=== PATIENT | female | born 1980 | race Caucasian/White ===

== ENCOUNTER 2017-03-03 15:26 | Inpatient (IN) | payer MEDICAID, OTHER ==
[2017-03-03] MEDS ORDERED: SOLU-Medrol 40 MG VIAL IVP ONE (17:44)
[2017-03-03 17:58] VITALS: BMI 42.8
[2017-03-03] MEDS: NS 1000 ML 1,000 ML IV SCH (18:03)
[2017-03-03 18:24] LABS: BASOPHILS # (AUTO) 0.1 X10^3/uL (0.0-0.1); BASOPHILS % (AUTO) 0.9 % (0.2-1.0); EOSINOPHILS # (AUTO) 0.1 x10^3/uL (0.0-0.2); EOSINOPHILS % (AUTO) 1.5 % (0.9-2.9); HEMATOCRIT 34.8 % (36.0-47.0); HEMOGLOBIN 11.7 g/dL (12.0-16.0); LYMPHOCYTES # (AUTO) 2.7 X10^3/uL (1.3-2.9); LYMPHOCYTES % (AUTO) 34.1 % (21.0-51.0); MEAN CORPUSCULAR HEMOGLOBIN 26.6 pg (27.0-34.0); MEAN CORPUSCULAR HGB CONC 33.6 g/dL (33.0-35.0); MEAN CORPUSCULAR VOLUME 79.2 fL (80.0-100.0); MEAN PLATELET VOLUME 8.2 fL (7.4-11.0); MONOCYTES # (AUTO) 0.4 x10^3/uL (0.3-0.8); MONOCYTES % (AUTO) 4.6 % (0.0-13.0); NEUTROPHILS # (AUTO) 4.7 x10^3/uL (2.2-4.8); NEUTROPHILS % (AUTO) 58.9 % (42.0-75.0); PLATELET COUNT 282 X10^3/uL (150.0-450.0); RED BLOOD COUNT 4.39 X10^6/uL (3.5-5.4); RED CELL DISTRIBUTION WIDTH 13.8 % (11.6-16.5)
[2017-03-03 18:38] LABS: ALANINE AMINOTRANSFERASE 41 Units/L (12-78); ALBUMIN 3.7 g/dL (3.4-5.0); ALKALINE PHOSPHATASE 82 Units/L (46-116); AMYLASE 33 Units/L (25-115); ASPARTATE AMINO TRANSFERASE 27 Units/L (15-37); BLOOD UREA NITROGEN 13 mg/dL (7-18); CALCIUM 8.7 mg/dL (8.5-10.1); CARBON DIOXIDE 27.4 mmol/L (21-32); CHLORIDE 107 mmol/L (98-107); GLUCOSE 91 mg/dL (65-99); LIPASE 117 Units/L (73-393); SODIUM 143 mmol/L (136-145); TOTAL PROTEIN 7.2 g/dL (6.4-8.2); eGFR BLACK RACES > 60 (>60); eGFR NON BLACK RACES 59 (>60)
[2017-03-03] MEDS: BENADRYL INJ 50 MG VIAL IVP SCH ×2 (18:42→23:13)
[2017-03-03 18:56] LABS: D DIMER 102 ng/mL (0-400)
[2017-03-03 19:07] LABS: ERYTHROCYTE SEDIMENTATION RATE 16 MM/HOUR (0-20)
--- NOTE | 2017-03-03 19:09 | RAD ---
HISTORY: Shortness of breath. Facial cellulitis. Study: Chest two views Comparison: None. Findings: The trachea is midline. The cardiac silhouette is unremarkable. The lungs are clear without focal infiltrate or effusion. The bony thorax is unremarkable. IMPRESSION: 1. No acute cardiopulmonary disease. Reported By:
[2017-03-03] MEDS: TEFLARO 600 MG in NS 50 ML IV + SPIKE MINIBAG* 50 ML IV SCH (20:03)
[2017-03-03 21:13] LABS: BILIRUBIN,URINE NEGATIVE (NEGATIVE); BLOOD/HEMOGLOBIN,URINE NEGATIVE (NEGATIVE); GLUCOSE, URINE NEGATIVE (NEGATIVE); KETONES,URINE NEGATIVE (NEGATIVE); LEUKOCYTE ESTERASE ,URINE NEGATIVE (NEGATIVE); NITRITES,URINE NEGATIVE (NEGATIVE); PROTEIN,URINE NEGATIVE (NEGATIVE); UROBILINOGEN,URINE NORMAL (NORMAL)
[2017-03-03 21:15] LABS: APPEARANCE,URINE CLEAR (CLEAR); COLOR,URINE YELLOW (YELLOW)
[2017-03-03 21:17] LABS: BACTERIA,URINE TRACE /HPF (NEGATIVE); MUCUS,URINE MODERATE /HPF (NEGATIVE); RBC,URINE NONE SEEN /HPF (NEGATIVE); SQUAMOUS EPITHELIAL CELL,UR FEW /HPF (NEGATIVE)
[2017-03-03] MEDS: ZOFRAN INJ 4 MG VIAL IVP PRN (23:13)
[2017-03-04 04:57] LABS: BLOOD UREA NITROGEN 11 mg/dL (7-18); CALCIUM 8.7 mg/dL (8.5-10.1); CARBON DIOXIDE 26.1 mmol/L (21-32); CHLORIDE 108 mmol/L (98-107); COR NA(FOR HYPERGLY) 144 mmol/L (136-145); CREATININE 0.73 mg/dL (0.55-1.02); GLUCOSE 167 mg/dL (65-99); SODIUM 142 mmol/L (136-145); eGFR BLACK RACES > 60 (>60); eGFR NON BLACK RACES > 60 (>60)
[2017-03-04 05:00] LABS: BASOPHILS % (AUTO) 0.2 % (0.2-1.0); HEMATOCRIT 36.7 % (36.0-47.0); HEMOGLOBIN 12.1 g/dL (12.0-16.0); LYMPHOCYTES # (AUTO) 0.8 X10^3/uL (1.3-2.9); LYMPHOCYTES % (AUTO) 11.2 % (21.0-51.0); MEAN CORPUSCULAR HEMOGLOBIN 26.3 pg (27.0-34.0); MEAN CORPUSCULAR HGB CONC 32.9 g/dL (33.0-35.0); MEAN CORPUSCULAR VOLUME 80.2 fL (80.0-100.0); MEAN PLATELET VOLUME 8.6 fL (7.4-11.0); MONOCYTES # (AUTO) 0.1 x10^3/uL (0.3-0.8); MONOCYTES % (AUTO) 0.8 % (0.0-13.0); NEUTROPHILS # (AUTO) 6.2 x10^3/uL (2.2-4.8); NEUTROPHILS % (AUTO) 87.8 % (42.0-75.0); PLATELET COUNT 275 X10^3/uL (150.0-450.0); RED BLOOD COUNT 4.58 X10^6/uL (3.5-5.4); RED CELL DISTRIBUTION WIDTH 13.9 % (11.6-16.5); WHITE BLOOD COUNT 7.1 X10^3/uL (3.6-10.0)
[2017-03-04] MEDS: BENADRYL INJ 50 MG VIAL IVP SCH ×2 (05:39→11:20)
[2017-03-04] MEDS: TEFLARO 600 MG in NS 50 ML IV + SPIKE MINIBAG* 50 ML IV SCH ×2 (08:39→22:02)
[2017-03-04] MEDS: NORCO 10/325 TAB PO PRN ×2 (08:40→22:04)
[2017-03-04] MEDS ORDERED: TUSSIONEX PENNKINETIC SUSP PO PRN (13:06)
--- NOTE | 2017-03-04 13:13 | DR.H&P ---
H&P - History & Physical for Day of: H&P Date: 03/03/17 - Chief Complaint Chief Complaint: FACIAL SWELLING, COUGH - Allergies Allergies/Adverse Reactions: Allergies Allergy/AdvReac Type Severity Reaction Status Date / Time Lisinopril Allergy Verified 03/03/17 17:00 - History of Present Illness History of Present Illness: PATIENT IS A 36-YEAR-OLD WHITE FEMALE WHO WAS ADMITTED FROM [facility] ONE DAY AGO WITH FACIAL CELLULITIS/ ANGIOEDEMA, AND COUGH. pATIENT HAD BEEN TREATED PREVIOUS TO ADMISSION WITH ORAL ANTIBIOTICS. pATIENT HAS BEEN ON LISINOPRIL FOR ANTIHYPERTENSIVE TREATMENT. lISINOPRIL WAS DISCHARGED DUE TO POSSIBLE CAUSE OF COUGH AND ANGIOEDEMA. pLAN TO TREAT WITH iv ANTIBIOTICS AND STEROIDS AND ANTIHISTAMINES FOR TREATMENT. - Past Medical History Past Medical History: Hypertension - Past Surgical History Surgical History: , Hysterectomy, Other - Social History Does patient currently use any type of tobacco product: No Have you used tobacco products in the last 12 months: No Type of Tobacco Use: None Does any household member use tobacco: No Alcohol Use: None Drug Use: None - Medications Home Medications: Amlodipine Besylate [NORVASC 5 MG *] 1 tab PO DAILY 03/04/17 [History Confirmed 03/04/17] Hydrochlorothiazide [Hydrochlorothiazide 25 mg Tab] 1 tab PO DAILY 03/04/17 [ History Confirmed 03/04/17] Hydrocodone-Acet 10/325 mg [NORCO 10 MG/325 MG *] 1 tab PO TID PRN 03/04/17 [ History Confirmed 03/04/17] Lisinopril [ZESTRIL *] 1 tab PO DAILY 03/04/17 [History Confirmed 03/04/17] Phentermine HCl [Adipex-P] 1 tab PO DAILY 03/04/17 [History Confirmed 03/04/17] Prednisone [Prednisone DS Dosepak 10 mg (12 day)] 1 tab PO DAILY 03/04/17 [ History Confirmed 03/04/17] Ranitidine HCl [Ranitidine [address]] 1 tab PO BID 03/04/17 [History Confirmed 03/04/17] Sulfamethoxazole-Trimethoprim [BACTRIM DS TAB 800/160 MG *] 1 tab PO BID [History Confirmed 03/04/17] - Review of Systems Constitutional: No Symptoms Reported Eyes: No Symptoms Reported, Conjunctivae Inflammation ENT: Nose Congestion, Throat Pain Respiratory: Cough Cardiovascular: No Symptoms Reported Gastrointestinal: No Symptoms Reported Genitourinary: No Symptoms Reported Musculoskeletal: No Symptoms Reported Skin: Other (MILD REDNESS TO LEFT CHEEK LEFT PERIORBITAL AREA) Neurological: No Symptoms Reported - Physical Exam Vital Signs: Temperature 98.0 F Pulse Rate [Left Brachial] 67 Respiratory Rate 20 Blood Pressure [Left Arm] 113/56 O2 Sat by Pulse Oximetry 96 Oriented: Normal Eyes: Normal Ear: Normal Nose: Normal Throat: Normal Respiratory: RLL Exp. Wheeze, LLL Exp. Wheeze Cardiovascular: Normal : Normal Auscultation: Bowel Sounds: Normal Palpation: Normal Tenderness: Normal Skin: Red (MILD REDNESS LOCALIZED TO LEFT CHEEK) Musculoskeletal: Normal Psychiatric: Anxiety Speech Pattern: Clear, Appropriate - Assessment/Plan (1) Cough due to TORITO inhibitor Status: Acute Plan: ADMIT IV ATBX, IV STEROIDS, ANTIHISTAMINES (2) Facial cellulitis Status: Acute (3) HTN (hypertension) Qualifiers: Hypertension type: H Status: Chronic
--- NOTE | 2017-03-04 13:16 | PCM.PROG ---
Progress Note - Progress Note for Day of Date: 03/04/17 - Subjective Subjective: she is a 36-year-old white female who was admitted one day ago with possible allergic reaction/angioedema from TORITO inhibitor. Patient has been on IV antibiotics for facial cellulitis which is significantly improved. Patient continues to cough today. Plan to consult respiratory therapy start Protonix 40 IV, reassess q am - Past Medical Family Social History Past Med/Fam/Surg Hx: No changes since H&P Allergies: Allergies Lisinopril Allergy (Verified 03/03/17 17:00) - Review of Systems ROS: No change since H&P - Vital Signs and I&O's Vital Signs: Temperature 98.0 F Pulse Rate [Left Brachial] 67 Respiratory Rate 20 Blood Pressure [Left Arm] 113/56 O2 Sat by Pulse Oximetry 96 Intake and Output: Intake & Output 03/02/17 03/03/17 03/04/17 03/05/17 11:59 11:59 11:59 11:59 Intake Total 687 Output Total 100 Balance 587 - Physical Exam Oriented: Normal Eyes: Normal Ear: Normal Nose: Normal Throat: Normal Respiratory: Normal Cardiovascular: Normal : Normal Auscultation: Bowel Sounds: Normal Tenderness: Normal Skin: Normal Musculoskeletal: Normal Psychiatric: Anxiety Speech Pattern: Clear, Appropriate - Laboratory and Diagnostics Result Diagrams: 03/04/17 04:05 03/04/17 04:05 Labs: Laboratory WBC 7.1 X10^3/uL (3.6-10.0) 03/04/17 04:05 RBC 4.58 X10^6/uL (3.5-5.4) 03/04/17 04:05 Hgb 12.1 g/dL (12.0-16.0) 03/04/17 04:05 Hct 36.7 % (36.0-47.0) 03/04/17 04:05 MCV 80.2 fL (80.0-100.0) 03/04/17 04:05 MCH 26.3 pg (27.0-34.0) L 03/04/17 04:05 MCHC 32.9 g/dL (33.0-35.0) L 03/04/17 04:05 RDW 13.9 % (11.6-16.5) 03/04/17 04:05 Plt Count 275 X10^3/uL (150.0-450.0) 03/04/17 04:05 MPV 8.6 fL (7.4-11.0) 03/04/17 04:05 Neut % 87.8 % (42.0-75.0) H 03/04/17 04:05 Lymph % 11.2 % (21.0-51.0) L 03/04/17 04:05 [place] % 0.8 % (0.0-13.0) 03/04/17 04:05 Eos % 0.0 % (0.9-2.9) L 03/04/17 04:05 Baso % 0.2 % (0.2-1.0) 03/04/17 04:05 Neut # 6.2 x10^3/uL (2.2-4.8) H 03/04/17 04:05 Lymph # 0.8 X10^3/uL (1.3-2.9) L 03/04/17 04:05 [place] # 0.1 x10^3/uL (0.3-0.8) L 03/04/17 04:05 Eos # 0.0 x10^3/uL (0.0-0.2) 03/04/17 04:05 Baso # 0.0 X10^3/uL (0.0-0.1) 03/04/17 04:05 Absolute Nucleated RBC 0.0 /100WBC 03/04/17 04:05 ESR 16 MM/HOUR (0-20) 03/03/17 18:00 D-Dimer 102 ng/mL (0-400) 03/03/17 18:00 Sodium 142 mmol/L (136-145) 03/04/17 04:05 Corrected Sodium 144 mmol/L (136-145) 03/04/17 04:05 Potassium 4.3 mmol/L (3.5-5.1) 03/04/17 04:05 Chloride 108 mmol/L (98-107) H 03/04/17 04:05 Carbon Dioxide 26.1 mmol/L (21-32) 03/04/17 04:05 BUN 11 mg/dL (7-18) 03/04/17 04:05 Creatinine 0.73 mg/dL (0.55-1.02) 03/04/17 04:05 Est GFR (MDRD) Af Amer > 60 (>60) 03/04/17 04:05 Est GFR (MDRD) Non-Af > 60 (>60) 03/04/17 04:05 Glucose 167 mg/dL (65-99) H 03/04/17 04:05 Calcium 8.7 mg/dL (8.5-10.1) 03/04/17 04:05 Corrected Calcium TNP 03/03/17 18:00 Total Bilirubin 0.10 mg/dL (0.2-1.0) L 03/03/17 18:00 AST 27 Units/L (15-37) 03/03/17 18:00 ALT 41 Units/L (12-78) 03/03/17 18:00 Alkaline Phosphatase 82 Units/L (46-116) 03/03/17 18:00 C-Reactive Protein 8.90 mg/L (0-3.0) H 03/03/17 18:00 Total Protein 7.2 g/dL (6.4-8.2) 03/03/17 18:00 Albumin 3.7 g/dL (3.4-5.0) 03/03/17 18:00 Globulin 3.5 g/dL (2.5-4.5) 03/03/17 18:00 Albumin/Globulin Ratio 1.1 Ratio (1.1-2.1) 03/03/17 18:00 Amylase 33 Units/L (25-115) 03/03/17 18:00 Lipase 117 Units/L (73-393) 03/03/17 18:00 Specimen Type Clean catch urine 03/03/17 21:00 Urine Color Yellow (YELLOW) 03/03/17 21:00 Urine Appearance Clear (CLEAR) 03/03/17 21:00 Urine pH 6.0 (5.0 - 8.0) 03/03/17 21:00 Ur Specific [place] 1.025 (1.000-1.030) 03/03/17 21:00 Urine Protein Negative (NEGATIVE) 03/03/17 21:00 Urine Glucose (UA) Negative (NEGATIVE) 03/03/17 21:00 Urine Ketones Negative (NEGATIVE) 03/03/17 21:00 Urine Occult Blood Negative (NEGATIVE) 03/03/17 21:00 Urine Nitrite Negative (NEGATIVE) 03/03/17 21:00 Urine Bilirubin Negative (NEGATIVE) 03/03/17 21:00 Urine Urobilinogen Normal (NORMAL) 03/03/17 21:00 Ur Leukocyte Esterase Negative (NEGATIVE) 03/03/17 21:00 Urine RBC None seen /HPF (NEGATIVE) 03/03/17 21:00 Urine WBC None seen /HPF (NEGATIVE) 03/03/17 21:00 Ur Squamous Epith Cells Few /HPF (NEGATIVE) 03/03/17 21:00 Urine Bacteria Trace /HPF (NEGATIVE) 03/03/17 21:00 Urine Mucus Moderate /HPF (NEGATIVE) 03/03/17 21:00 Ur Culture Indicated? No/not indicated 03/03/17 21:00 - Plan (1) Cough due to TORITO inhibitor Status: Acute Plan: continue IV ATBX, IV STEROIDS, ANTIHISTAMINES. resp consult, ppi (2) Facial cellulitis Status: Acute Plan: resolving (3) HTN (hypertension) Status: Chronic Qualifiers: Hypertension type: H (4) Hyperglycemia Status: Acute Plan: A1C
[2017-03-04] MEDS: PROTONIX INJ 40 MG VIAL IVP SCH (14:35)
[2017-03-04] MEDS: DUONEB 0.5 MG/3 MG NEB SCH ×2 (17:00→21:20)
[2017-03-04] MEDS: NS 1000 ML 1,000 ML IV SCH (18:32)
[2017-03-04] MEDS: PULMICORT NEB TX 0.5 MG NEB SCH (21:20)
[2017-03-05] MEDS: ZOFRAN INJ 4 MG VIAL IVP PRN (00:28)
[2017-03-05] MEDS ORDERED: NORCO 10/325 TAB PO PRN (00:38)
[2017-03-05 05:43] LABS: ALANINE AMINOTRANSFERASE 33 Units/L (12-78); ALKALINE PHOSPHATASE 63 Units/L (46-116); ASPARTATE AMINO TRANSFERASE 14 Units/L (15-37); BLOOD UREA NITROGEN 12 mg/dL (7-18); CALCIUM 7.9 mg/dL (8.5-10.1); CHLORIDE 109 mmol/L (98-107); COR CA(FOR HYPOALB) 8.7 mg/dL (8.5-10.1); CREATININE 0.67 mg/dL (0.55-1.02); GLUCOSE 102 mg/dL (65-99); SODIUM 144 mmol/L (136-145); TOTAL PROTEIN 6.1 g/dL (6.4-8.2); eGFR BLACK RACES > 60 (>60); eGFR NON BLACK RACES > 60 (>60)
[2017-03-05 06:23] LABS: BASOPHILS % (AUTO) 0.5 % (0.2-1.0); EOSINOPHILS # (AUTO) 0.1 x10^3/uL (0.0-0.2); EOSINOPHILS % (AUTO) 0.8 % (0.9-2.9); HEMATOCRIT 32.6 % (36.0-47.0); HEMOGLOBIN 10.9 g/dL (12.0-16.0); LYMPHOCYTES # (AUTO) 3.2 X10^3/uL (1.3-2.9); LYMPHOCYTES % (AUTO) 38.2 % (21.0-51.0); MEAN CORPUSCULAR HEMOGLOBIN 26.6 pg (27.0-34.0); MEAN CORPUSCULAR HGB CONC 33.4 g/dL (33.0-35.0); MEAN CORPUSCULAR VOLUME 79.5 fL (80.0-100.0); MEAN PLATELET VOLUME 8.5 fL (7.4-11.0); MONOCYTES # (AUTO) 0.5 x10^3/uL (0.3-0.8); MONOCYTES % (AUTO) 5.7 % (0.0-13.0); NEUTROPHILS # (AUTO) 4.6 x10^3/uL (2.2-4.8); NEUTROPHILS % (AUTO) 54.8 % (42.0-75.0); PLATELET COUNT 244 X10^3/uL (150.0-450.0); RED CELL DISTRIBUTION WIDTH 14.3 % (11.6-16.5); WHITE BLOOD COUNT 8.5 X10^3/uL (3.6-10.0)
[2017-03-05] MEDS: PROTONIX INJ 40 MG VIAL IVP SCH (08:45)
[2017-03-05] MEDS: TEFLARO 600 MG in NS 50 ML IV + SPIKE MINIBAG* 50 ML IV SCH (08:45)
[2017-03-05] MEDS ORDERED: HYDROCHLOROTHIAZIDE 25 MG TAB PO SCH (09:00)
[2017-03-05] MEDS ORDERED: ZESTRIL TAB 20 MG PO SCH (09:00)
[2017-03-05] MEDS ORDERED: ZANTAC PO SCH (09:00)
[2017-03-05] MEDS ORDERED: NORVASC TAB 5 MG PO SCH (09:00)
[2017-03-05] MEDS: PULMICORT NEB TX 0.5 MG NEB SCH (09:03)
[2017-03-05] MEDS: DUONEB 0.5 MG/3 MG NEB SCH (09:03)
[2017-03-05 10:15] VITALS: BP 118/68
== END 2017-03-05 10:05 | disposition home or self-care (01) | DRG 603 ==
LOC: MED/SURG 15:26
PROVIDERS: ADMIT Internal Medicine; ATTEND Internal Medicine
DX: L03.211 Cellulitis of face (principal); T46.4X5A Adverse effect of angiotensin-converting-enzyme inhibitors, initial encounter; T78.3XXA Angioneurotic edema, initial encounter; I10 Essential (primary) hypertension; Y92.89 Other specified places as the place of occurrence of the external cause
CPT/HCPCS: 36415; 71020; 80048; 80053; 81001; 82150; 83036; 83690; 85025; 85378; 85652; 86140; 87040; 94640; 94760; 94762; A4222; C9113; J0712; J1200; J2405; J2920; J7620; J7626

== ENCOUNTER 2017-03-07 13:16 | Emergency (ER) | payer OTHER ==
[2017-03-07 13:22] VITALS: BMI 39.5
--- NOTE | 2017-03-07 14:11 | DR.GENAD ---
HPI - PCP Primary Care Physician: ZHANG - Complaint/Symptoms Chief Complaint Doctors Comments: Agree with statement. The new medication is amlodipine.. Patient has an intermittent cough and has had is for a few days. She has been the amlodipine for 3-4 days. BP in triage 136/101. Patient reports that her mother had a stroke due to high blood pressure and she is concerned and does not want to happen to her. Patient has been on her new medication for three days with today and she needs to be on medicine a few more days for it to peak and if that is acceptable to both her and her physician. concerned about BP management and the pressure is not concerning at this time. She Chief Complaint:: PT C/O HIGH BLOOD PRESSURE WITH BAD HEADACHE. PT STATES SHE JUST WAS DISCHARGED FROM THE HOSPITAL THURSDAY FOR HAVING A ALLERGIC REACTION TO HER LISINOPRIL. PT STATES SHE WAS STARTED ON A NEW BLOOD PRESUURE MEDICAITON AND IT HAS NOT HELPED ANY - Source History Provided: Patient - Mode of Arrival Mode of Arrival: Ambulatory - Timing Onset of Chief Complaint: 03/04/17 PMH - PMH Past Medical History: Yes Past Medical History: Hypertension Past Surgical History: Yes Surgical History: , Hysterectomy, Other - Family History History of Family Medical Conditions: No - Social History Does any household member use tobacco: No Alcohol Use: None Do you use any recreational Drugs:: No Lives With: Family Lives Where: Home - infectious screening In the last 2 months have you had wt loss of >10#?: NO Have you had fever, night sweats or hemotysis?: No Have you traveled outside the country in the last 6 months?: No Isolation: Standard ROS - Review of Systems Eyes: No Symptoms Reported ENTM: No Symptoms Reported Respiratoy: No Symptoms Reported Cardiovascular: No Symptoms Reported Gastrointestinal/Abdominal: No Symptoms Reported Genitourinary: No Symptoms Reported Neurological: No Symptoms Reported Musculoskeletal: No Symptoms Reported Integumentary: No Symptoms Reported Hematologic/Lymphatic: No Symptoms Reported Endocrine: No Symptoms Reported Psychiatric: No Symptoms Reported All Other Systems: Reviewed and Negative PE - Vital Signs Vitals: Temperature 97.8 F Pulse Rate 81 Respiratory Rate 20 Blood Pressure [Left Arm] 118/68 Blood Pressure 136/101 O2 Sat by Pulse Oximetry 99 - General General Appearance: Alert, In No Apparent Distress - Head Head Exam: Normal Inspection, Atraumatic - Eyes Eye exam: Normal Appearance, PERRL, EOMI - ENT ENT Exam: Normal Exam, Normal Oropharynx External Ear Exam: Normal External Inspection TM/Canal Exam: Bilateral Normal Nose Exam: Normal Nose Exam Mouth Exam: Normal Inspection Throat Exam: Normal Inspection - Neck Neck Exam: Normal Inspection - Chest Chest Inspection: Normal Inspection - Respiratory Respiratory Exam: Normal Lung Sounds Bilat Respiratory Exam: Bilateral Clear to Auscultation - Cardiovascular Cardiovascular Exam: Regular Rate, Normal Rhythm - Abdominal Exam Abdominal Exam: Normal Inspection Abdominal Tenderness: negative: RUQ, RLQ, LUQ, LLQ, Epigastrium, Suprapubic, Diffuse, Mild, Moderate, Severe, Other - Extremities Extremities Exam: Normal Inspection - Back Back Exam: Normal Inspection - Neurologic Neurological Exam: Alert, Oriented X3, CN II-XII Intact - Psychiatric Psychiatric Exam: Normal Affect - Skin Skin Exam: Warm, Dry, Intact Course - Reevaluation 1st: Improved - Diagnosis Discharge Problem: History of hypertension - Discharge Plan Condition: Stable - Follow ups/Referrals Follow ups/Referrals: OSWALDO HOLCOMB [Primary Care Provider] - 3 days - Instructions
[2017-03-07 14:16] VITALS: BP 152/70
== END 2017-03-07 14:40 | disposition home or self-care (01) ==
LOC: ER 13:24
DX: I10 Essential (primary) hypertension (principal)
CPT/HCPCS: 99281; 99282

== ENCOUNTER 2017-09-02 13:35 | Observation (INO) | payer OTHER ==
[2017-09-02] MEDS: LASIX IVP SCH ×2 (15:51→23:58)
[2017-09-02 16:10] LABS: BILIRUBIN,URINE NEGATIVE (NEGATIVE); BLOOD/HEMOGLOBIN,URINE NEGATIVE (NEGATIVE); GLUCOSE, URINE NEGATIVE (NEGATIVE); KETONES,URINE NEGATIVE (NEGATIVE); LEUKOCYTE ESTERASE ,URINE NEGATIVE (NEGATIVE); NITRITES,URINE NEGATIVE (NEGATIVE); PROTEIN,URINE NEGATIVE (NEGATIVE); UROBILINOGEN,URINE NORMAL (NORMAL)
[2017-09-02 16:13] LABS: BASOPHILS # (AUTO) 0.1 X10^3/uL (0.0-0.1); BASOPHILS % (AUTO) 0.9 % (0.2-1.0); EOSINOPHILS # (AUTO) 0.2 x10^3/uL (0.0-0.2); EOSINOPHILS % (AUTO) 2.1 % (0.9-2.9); HEMATOCRIT 39.9 % (36.0-47.0); HEMOGLOBIN 13.7 g/dL (12.0-16.0); LYMPHOCYTES % (AUTO) 37.7 % (21.0-51.0); MEAN CORPUSCULAR HEMOGLOBIN 27.4 pg (27.0-34.0); MEAN CORPUSCULAR HGB CONC 34.2 g/dL (33.0-35.0); MONOCYTES # (AUTO) 0.5 x10^3/uL (0.3-0.8); MONOCYTES % (AUTO) 4.9 % (0.0-13.0); NEUTROPHILS # (AUTO) 5.7 x10^3/uL (2.2-4.8); NEUTROPHILS % (AUTO) 54.4 % (42.0-75.0); PLATELET COUNT 321 X10^3/uL (150.0-450.0); RED BLOOD COUNT 4.99 X10^6/uL (3.5-5.4); RED CELL DISTRIBUTION WIDTH 14.1 % (11.6-16.5); WHITE BLOOD COUNT 10.5 X10^3/uL (3.6-10.0)
[2017-09-02 16:22] LABS: APPEARANCE,URINE CLEAR (CLEAR); COLOR,URINE YELLOW (YELLOW); SQUAMOUS EPITHELIAL CELL,UR NEGATIVE /HPF (NEGATIVE)
[2017-09-02 16:23] LABS: BACTERIA,URINE NEGATIVE /HPF (NEGATIVE)
[2017-09-02 16:34] LABS: ALANINE AMINOTRANSFERASE 46 Units/L (12-78); ALKALINE PHOSPHATASE 93 Units/L (46-116); ASPARTATE AMINO TRANSFERASE 29 Units/L (15-37); BLOOD UREA NITROGEN 10 mg/dL (7-18); CARBON DIOXIDE 27.7 mmol/L (21-32); CHLORIDE 102 mmol/L (98-107); CKMB % 0.6 % (<4); CREATINE KINASE 159 Units/L (26-192); CREATINE KINASE MB < 1.0 ng/mL (0-4.0); CREATININE 0.63 mg/dL (0.55-1.02); SODIUM 140 mmol/L (136-145); TOTAL PROTEIN 7.9 g/dL (6.4-8.2); TROPONIN I 0.03 ng/mL (0-1.5); eGFR BLACK RACES > 60 (>60); eGFR NON BLACK RACES > 60 (>60)
[2017-09-02 16:38] LABS: B-TYPE NATRIURETIC PEPTIDE 18.8 pg/mL (0-79); CALCIUM 9.6 mg/dL (8.5-10.1)
--- NOTE | 2017-09-02 17:03 | RAD ---
Chest, one view Indication: Shortness of breath, swelling Comparison: 03/03/2017 Findings: Cardiac silhouette is unremarkable. The lungs are essentially clear without dense infiltrate, effusio n, or overt pulmonary edema. Impression: No acute chest process. Reported By:
[2017-09-02 22:16] LABS: CKMB % 0.7 % (<4); CREATINE KINASE 137 Units/L (26-192); CREATINE KINASE MB < 1.0 ng/mL (0-4.0); TROPONIN I 0.03 ng/mL (0-1.5)
[2017-09-02] MEDS: TYLENOL 325 MG TAB PO PRN (22:24)
[2017-09-03 03:17] LABS: BASOPHILS # (AUTO) 0.1 X10^3/uL (0.0-0.1); BASOPHILS % (AUTO) 1.1 % (0.2-1.0); EOSINOPHILS # (AUTO) 0.2 x10^3/uL (0.0-0.2); HEMATOCRIT 39.8 % (36.0-47.0); HEMOGLOBIN 13.5 g/dL (12.0-16.0); LYMPHOCYTES # (AUTO) 2.9 X10^3/uL (1.3-2.9); LYMPHOCYTES % (AUTO) 37.2 % (21.0-51.0); MEAN CORPUSCULAR HEMOGLOBIN 27.3 pg (27.0-34.0); MEAN CORPUSCULAR VOLUME 80.2 fL (80.0-100.0); MEAN PLATELET VOLUME 7.9 fL (7.4-11.0); MONOCYTES # (AUTO) 0.5 x10^3/uL (0.3-0.8); MONOCYTES % (AUTO) 6.2 % (0.0-13.0); NEUTROPHILS % (AUTO) 52.5 % (42.0-75.0); PLATELET COUNT 307 X10^3/uL (150.0-450.0); RED BLOOD COUNT 4.96 X10^6/uL (3.5-5.4); RED CELL DISTRIBUTION WIDTH 13.9 % (11.6-16.5); WHITE BLOOD COUNT 7.7 X10^3/uL (3.6-10.0)
[2017-09-03 03:30] LABS: ALANINE AMINOTRANSFERASE 42 Units/L (12-78); ALBUMIN 3.6 g/dL (3.4-5.0); ALKALINE PHOSPHATASE 85 Units/L (46-116); ASPARTATE AMINO TRANSFERASE 28 Units/L (15-37); BLOOD UREA NITROGEN 14 mg/dL (7-18); CARBON DIOXIDE 27.2 mmol/L (21-32); CHLORIDE 101 mmol/L (98-107); CKMB % 0.8 % (<4); COR NA(FOR HYPERGLY) 141 mmol/L (136-145); CREATINE KINASE 119 Units/L (26-192); CREATINE KINASE MB < 1.0 ng/mL (0-4.0); CREATININE 0.89 mg/dL (0.55-1.02); SODIUM 141 mmol/L (136-145); TOTAL PROTEIN 7.4 g/dL (6.4-8.2); TROPONIN I 0.03 ng/mL (0-1.5); eGFR BLACK RACES > 60 (>60); eGFR NON BLACK RACES > 60 (>60)
[2017-09-03] MEDS ORDERED: MAGNESIUM SULFATE 1 GM/100 mL PREMIX 1 GM/100 ML BAG IV PRN (04:35)
[2017-09-03] MEDS ORDERED: MAG-OX TAB PO PRN (04:35)
[2017-09-03] MEDS ORDERED: K-RIDER 10 MEQ/NS 100 ML 10 MEQ/100 ML BAG IV PRN (04:35)
[2017-09-03] MEDS ORDERED: POTASSIUM CHLORIDE LIQ 20 MEQ UDC PO PRN (04:35)
[2017-09-03] MEDS ORDERED: K-LYTE EFFERVESCENT PO PRN (04:35)
[2017-09-03] MEDS ORDERED: POTASSIUM CHL 40 MEQ/NS 0.45% 500 ML 40 MEQ/500 ML BAG IV PRN (04:46)
[2017-09-03] MEDS ORDERED: K-DUR TAB 20 MEQ PO ONE ×2 (04:56→05:10)
[2017-09-03] MEDS ORDERED: POTASSIUM CHL 60 MEQ/NS 0.45% 500 ML IV NR (05:00)
[2017-09-03] MEDS ORDERED: POTASSIUM CHL 40 MEQ/NS 0.45% 500 ML IV NR (05:00)
[2017-09-03 08:29] VITALS: BMI 43.2
[2017-09-03] MEDS ORDERED: K-DUR TAB 20 MEQ PO SCH (09:00)
[2017-09-03] MEDS: LASIX IVP SCH (09:02)
[2017-09-03] MEDS: TYLENOL 325 MG TAB PO PRN (09:10)
[2017-09-03 12:47] VITALS: BP 94/59
--- NOTE | 2017-09-03 19:32 | DR.H&P ---
H&P - History & Physical for Day of: H&P Date: 09/02/17 - Chief Complaint Chief Complaint: SOB, Swelling, 5lb weight gain in 2 days - Allergies Allergies/Adverse Reactions: Allergies Allergy/AdvReac Type Severity Reaction Status Date / Time lisinopril Allergy Verified 04/27/17 13:19 - History of Present Illness History of Present Illness: The patient is a 37yo WF who presented to [facility] with complaint of SOB at rest and on exertion. States she has gained 8lbs in 2 days despite starting Lasix on Thursday and increasing it to BID. States she is not voiding with the Lasix. States that she feels puffy and is SOB. - Past Medical History Past Medical History: Hypertension - Past Surgical History Surgical History: Appendectomy, , Cholecystectomy, Hysterectomy - Family History Family Medical History: Diabetes Mellitus, Hypertension - Social History Does patient currently use any type of tobacco product: No Have you used tobacco products in the last 12 months: No Type of Tobacco Use: None Does any household member use tobacco: No Alcohol Use: None Drug Use: Prescription Drugs - Medications Home Medications: Clonidine HCl 0.1 mg PO DAILY 09/02/17 [History Confirmed 09/02/17] Furosemide [LASIX TAB 40 MG *] 40 mg PO DAILY 09/02/17 [History Confirmed ] Potassium Chloride [K-Dur Tab 20 Meq] 20 meq PO DAILY 09/02/17 [History Confirmed 09/02/17] - Review of Systems Constitutional: Malaise Eyes: No Symptoms Reported ENT: No Symptoms Reported Respiratory: Shortness of Breath, SOB with Excertion Cardiovascular: Edema Gastrointestinal: No Symptoms Reported Genitourinary: Retention Musculoskeletal: No Symptoms Reported Skin: No Symptoms Reported Neurological: No Symptoms Reported - Physical Exam Vital Signs: Temperature 97.7 F Pulse Rate [Right Brachial] 74 Respiratory Rate 18 Blood Pressure [Right Arm] 94/59 Blood Pressure [Left Arm] 114/66 Blood Pressure 152/70 O2 Sat by Pulse Oximetry 100 Oriented: Normal Eyes: Normal Ear: Normal Nose: Normal Throat: Normal Respiratory: Clear Throughout Cardiovascular: Normal : Normal Auscultation: Bowel Sounds: Normal Palpation: Normal Tenderness: Normal Skin: Normal Musculoskeletal: Normal Psychiatric: Anxiety Mood Description: Anxious Affect: Anxious Speech Pattern: Clear - Assessment/Plan (1) Dyspnea Qualifiers: Dyspnea type: shortness of breath Qualified Code(s): R06.02 - Shortness of breath; R06.00 - Dyspnea, unspecified; R06.01 - Orthopnea Status: Acute Plan: CXR, BNP, Lasix (2) Diastolic heart failure Qualifiers: Heart failure chronicity: acute Qualified Code(s): I50.31 - Acute diastolic (congestive) heart failure Status: Acute Plan: CXR, Lasix, BNP (3) HTN (hypertension) Qualifiers: Hypertension type: essential hypertension Qualified Code(s): I10 - Essential (primary) hypertension Status: Chronic Plan: Monitor BP
== END 2017-09-03 13:49 | disposition home or self-care (01) | DRG 293 ==
LOC: INTOOBSV 13:35 → MED/SURG 13:35
PROVIDERS: ADMIT Internal Medicine; ATTEND Internal Medicine
DX: I50.31 Acute diastolic (congestive) heart failure (principal); R06.02 Shortness of breath; R06.09 Other forms of dyspnea; R60.0 Localized edema; I10 Essential (primary) hypertension; R06.01 Orthopnea
CPT/HCPCS: 36415; 71010; 80053; 81001; 82550; 82553; 83735; 83880; 84484; 85025; 87040; 87086; 93005; 93010; 94760; A4216; A4222; G0378; J1940

== ENCOUNTER 2018-12-02 12:59 | Inpatient (IN) ==
[2018-12-02] MEDS ORDERED: ZOFRAN INJ 4 MG VIAL IVP PRN (14:39)
[2018-12-02] MEDS ORDERED: ZOFRAN TAB 4 MG SL PRN (14:39)
--- NOTE | 2018-12-02 14:48 | DR.H&P ---
H&P - History & Physical for Day of: H&P Date: 12/02/18 - Chief Complaint Chief Complaint: Cellulitis to upper lip/nose - History of Present Illness History of Present Illness: The patient is a 38yo WF who has cellulitis to left upper lip/nare region. Was seen in office and started on Clindamycin. Today is having increase edema, erythema and pain. Denies dyspnea. No drainage present. - Past Medical History Past Medical History: Hypertension - Past Surgical History Surgical History: Appendectomy, , Cholecystectomy, Hysterectomy - Family History Family Medical History: Diabetes Mellitus, Hypertension - Social History Does patient currently use any type of tobacco product: No Have you used tobacco products in the last 12 months: No Type of Tobacco Use: None Does any household member use tobacco: No Alcohol Use: None Drug Use: None - Medications Home Medications: lisinopril Allergy (Verified 04/27/17 13:19) - Review of Systems Constitutional: Malaise Eyes: No Symptoms Reported ENT: Nose Pain Respiratory: No Symptoms Reported Cardiovascular: No Symptoms Reported Gastrointestinal: No Symptoms Reported Genitourinary: No Symptoms Reported Musculoskeletal: No Symptoms Reported Skin: No Symptoms Reported Neurological: No Symptoms Reported - Physical Exam Vital Signs: Temperature 98.2 F Pulse Rate [Left Radial] 99 Respiratory Rate 20 Blood Pressure [Right Arm] 141/109 Blood Pressure [Left Arm] 114/66 Blood Pressure 94/59 O2 Sat by Pulse Oximetry 97 Oriented: Normal Eyes: Normal Ear: Normal Nose: Other (marked erythema and edema to upper lip/nare) Throat: Normal Respiratory: Clear Throughout Cardiovascular: Normal : Normal Auscultation: Bowel Sounds: Normal Palpation: Normal Tenderness: Normal Skin: Red, Tender, Hot (upper lip/left nare) Musculoskeletal: Normal Psychiatric: Normal Mood Description: Calm Affect: Normal Speech Pattern: Clear - Assessment/Plan (1) Facial cellulitis Status: Acute Plan: IV ANTIBIOTICS, CT FACE, LABS, PAIN MGMT - Allergies Allergies/Adverse Reactions: Allergies Allergy/AdvReac Type Severity Reaction Status Date / Time lisinopril Allergy Verified 04/27/17 13:19
[2018-12-02] MEDS ORDERED: VANCOMYCIN HCL 500 MG VIAL 500 MG, VANCOMYCIN HCL 1 GM VIAL 1 G in D5W 250 ML IV 250 ML IV SCH (15:00)
[2018-12-02 15:14] LABS: BASOPHILS # (AUTO) 0.1 X10^3/uL (0.0-0.1); BASOPHILS % (AUTO) 0.7 % (0.2-1.0); EOSINOPHILS # (AUTO) 0.1 x10^3/uL (0.0-0.2); EOSINOPHILS % (AUTO) 0.5 % (0.9-2.9); HEMATOCRIT 41.3 % (36.0-47.0); HEMOGLOBIN 14.1 g/dL (12.0-16.0); LYMPHOCYTES # (AUTO) 2.7 X10^3/uL (1.3-2.9); LYMPHOCYTES % (AUTO) 22.9 % (21.0-51.0); MEAN CORPUSCULAR HEMOGLOBIN 26.8 pg (27.0-34.0); MEAN CORPUSCULAR HGB CONC 34.2 g/dL (33.0-35.0); MEAN CORPUSCULAR VOLUME 78.2 fL (80.0-100.0); MEAN PLATELET VOLUME 8.2 fL (7.4-11.0); MONOCYTES # (AUTO) 0.6 x10^3/uL (0.3-0.8); MONOCYTES % (AUTO) 5.4 % (0.0-13.0); NEUTROPHILS # (AUTO) 8.2 x10^3/uL (2.2-4.8); NEUTROPHILS % (AUTO) 70.5 % (42.0-75.0); PLATELET COUNT 339 X10^3/uL (150.0-450.0); RED BLOOD COUNT 5.28 X10^6/uL (3.5-5.4); RED CELL DISTRIBUTION WIDTH 13.6 % (11.6-16.5); WHITE BLOOD COUNT 11.7 X10^3/uL (3.6-10.0)
[2018-12-02] MEDS ORDERED: VANCOMYCIN HCL 1 GM VIAL ONE (15:14)
[2018-12-02] MEDS ORDERED: NS 250 ML IV 250 ML IV ONE (15:14)
[2018-12-02] MEDS ORDERED: NS 1000 ML 1,000 ML ONE (15:14)
[2018-12-02] MEDS ORDERED: VANCOMYCIN HCL 500 MG VIAL ONE (15:15)
[2018-12-02] MEDS ORDERED: NORCO 5/325 MG TAB ONE (15:15)
[2018-12-02 15:26] LABS: ALANINE AMINOTRANSFERASE 47 Units/L (12-78); ALKALINE PHOSPHATASE 95 Units/L (46-116); ASPARTATE AMINO TRANSFERASE 27 Units/L (15-37); BLOOD UREA NITROGEN 14 mg/dL (7-18); CALCIUM 9.8 mg/dL (8.5-10.1); CARBON DIOXIDE 37.5 mmol/L (21-32); CHLORIDE 97 mmol/L (98-107); CREATININE 0.87 mg/dL (0.55-1.02); SODIUM 138 mmol/L (136-145); TOTAL PROTEIN 8.4 g/dL (6.4-8.2); eGFR NON BLACK RACES > 60 (>60)
[2018-12-02 15:30] VITALS: BMI 44.0
[2018-12-02] MEDS: NORCO 5/325 MG TAB PO PRN (15:30)
[2018-12-02] MEDS: NS 1000 ML 1,000 ML IV SCH (15:31)
[2018-12-02] MEDS ORDERED: K-RIDER 10 MEQ/NS 100 ML 10 MEQ/100 ML BAG IV PRN (15:32)
[2018-12-02] MEDS ORDERED: POTASSIUM CHL 40 MEQ/NS 0.45% 500 ML IV PRN (15:32)
[2018-12-02] MEDS ORDERED: POTASSIUM CHL 60 MEQ/NS 0.45% 500 ML IV PRN (15:32)
[2018-12-02] MEDS ORDERED: MICRO K EXTEN CAP 10 MEQ PO PRN (15:32)
[2018-12-02] MEDS ORDERED: POTASSIUM CHLORIDE LIQ 20 MEQ UDC PO PRN (15:32)
[2018-12-02] MEDS ORDERED: MAGNESIUM SULFATE 1 GRAM/100 mL PREMIX 1 GM/100 ML BAG IV PRN (15:32)
[2018-12-02] MEDS: KLOR-CON PO PRN ×2 (17:30→22:10)
[2018-12-02] MEDS: TYLENOL 325 MG TAB PO PRN (20:51)
[2018-12-02] MEDS: AMBIEN PO PRN (22:10)
[2018-12-03] MEDS: MORPHINE SULFATE INJ 2 MG INJ IVP PRN ×3 (02:40→23:00)
[2018-12-03] MEDS: NS 1000 ML 1,000 ML IV SCH ×3 (04:18→21:41)
[2018-12-03] MEDS: NORCO 5/325 MG TAB PO PRN ×2 (06:15→13:16)
[2018-12-03 06:31] LABS: BASOPHILS # (AUTO) 0.1 X10^3/uL (0.0-0.1); BASOPHILS % (AUTO) 0.6 % (0.2-1.0); EOSINOPHILS # (AUTO) 0.2 x10^3/uL (0.0-0.2); EOSINOPHILS % (AUTO) 1.8 % (0.9-2.9); HEMOGLOBIN 12.4 g/dL (12.0-16.0); LYMPHOCYTES # (AUTO) 3.3 X10^3/uL (1.3-2.9); MEAN CORPUSCULAR HGB CONC 34.4 g/dL (33.0-35.0); MEAN CORPUSCULAR VOLUME 78.5 fL (80.0-100.0); MEAN PLATELET VOLUME 8.1 fL (7.4-11.0); MONOCYTES # (AUTO) 0.5 x10^3/uL (0.3-0.8); MONOCYTES % (AUTO) 5.5 % (0.0-13.0); NEUTROPHILS # (AUTO) 5.8 x10^3/uL (2.2-4.8); NEUTROPHILS % (AUTO) 59.1 % (42.0-75.0); PLATELET COUNT 289 X10^3/uL (150.0-450.0); RED BLOOD COUNT 4.59 X10^6/uL (3.5-5.4); RED CELL DISTRIBUTION WIDTH 13.8 % (11.6-16.5); WHITE BLOOD COUNT 9.9 X10^3/uL (3.6-10.0)
[2018-12-03 07:11] LABS: ALANINE AMINOTRANSFERASE 35 Units/L (12-78); ALBUMIN 3.3 g/dL (3.4-5.0); ALKALINE PHOSPHATASE 79 Units/L (46-116); ASPARTATE AMINO TRANSFERASE 24 Units/L (15-37); BLOOD UREA NITROGEN 13 mg/dL (7-18); CARBON DIOXIDE 32.5 mmol/L (21-32); CHLORIDE 99 mmol/L (98-107); COR CA(FOR HYPOALB) 9.6 mg/dL (8.5-10.1); CREATININE 0.71 mg/dL (0.55-1.02); SODIUM 139 mmol/L (136-145); TOTAL PROTEIN 7.2 g/dL (6.4-8.2); eGFR NON BLACK RACES > 60 (>60)
[2018-12-03] MEDS: K-DUR TAB 20 MEQ PO PRN ×3 (09:18→18:54)
[2018-12-03] MEDS: VANCOMYCIN HCL 500 MG VIAL 500 MG, VANCOMYCIN HCL 1 GM VIAL 1 G in D5W 250 ML IV 250 ML IV SCH ×2 (09:18→21:36)
[2018-12-03] MEDS: TYLENOL 325 MG TAB PO PRN (10:41)
--- NOTE | 2018-12-03 15:59 | CT ---
History: Sore and upper lip below right nasal area radiating into face and teeth. Study: CT sinus without contrast. Comparison: None. Technique: Multiple contiguous axial images of the sinuses without contrast. Coronal/sagittal reformats were obtained. Findings: Small mucous retention cyst within the left maxillary sinus. Otherwise, the paranasal sinuses and mastoid air cells are well-developed and aerated. There is a moderate left nasal septum deviation. The ostiomeatal units, sphenoethmoidal recesses, and frontoethmoidal recesses are patent. No mucoperiosteal thickening, nasal polyps or air-fluid levels are seen. The orbits are unremarkable. The visualized bones and surrounding soft tissues are unremarkable. Impression: Chronic findings as above. Reported By:
[2018-12-03] MEDS: AMBIEN PO PRN (21:35)
[2018-12-04] MEDS: NS 1000 ML 1,000 ML IV SCH ×3 (05:34→22:32)
[2018-12-04 06:45] LABS: BASOPHILS # (AUTO) 0.1 X10^3/uL (0.0-0.1); BASOPHILS % (AUTO) 0.7 % (0.2-1.0); EOSINOPHILS # (AUTO) 0.2 x10^3/uL (0.0-0.2); EOSINOPHILS % (AUTO) 2.9 % (0.9-2.9); HEMATOCRIT 34.3 % (36.0-47.0); HEMOGLOBIN 11.9 g/dL (12.0-16.0); LYMPHOCYTES # (AUTO) 2.8 X10^3/uL (1.3-2.9); LYMPHOCYTES % (AUTO) 32.9 % (21.0-51.0); MEAN CORPUSCULAR HEMOGLOBIN 27.2 pg (27.0-34.0); MEAN CORPUSCULAR HGB CONC 34.6 g/dL (33.0-35.0); MEAN CORPUSCULAR VOLUME 78.7 fL (80.0-100.0); MEAN PLATELET VOLUME 8.2 fL (7.4-11.0); MONOCYTES # (AUTO) 0.4 x10^3/uL (0.3-0.8); MONOCYTES % (AUTO) 4.9 % (0.0-13.0); NEUTROPHILS # (AUTO) 4.9 x10^3/uL (2.2-4.8); NEUTROPHILS % (AUTO) 58.6 % (42.0-75.0); PLATELET COUNT 267 X10^3/uL (150.0-450.0); RED BLOOD COUNT 4.36 X10^6/uL (3.5-5.4); RED CELL DISTRIBUTION WIDTH 13.7 % (11.6-16.5); WHITE BLOOD COUNT 8.4 X10^3/uL (3.6-10.0)
[2018-12-04 07:04] LABS: ALANINE AMINOTRANSFERASE 36 Units/L (12-78); ALBUMIN 3.1 g/dL (3.4-5.0); ALKALINE PHOSPHATASE 81 Units/L (46-116); ASPARTATE AMINO TRANSFERASE 22 Units/L (15-37); BLOOD UREA NITROGEN 12 mg/dL (7-18); CALCIUM 8.8 mg/dL (8.5-10.1); CARBON DIOXIDE 29.2 mmol/L (21-32); CHLORIDE 103 mmol/L (98-107); COR CA(FOR HYPOALB) 9.5 mg/dL (8.5-10.1); CREATININE 0.68 mg/dL (0.55-1.02); SODIUM 141 mmol/L (136-145); TOTAL PROTEIN 6.6 g/dL (6.4-8.2); eGFR NON BLACK RACES > 60 (>60)
[2018-12-04] MEDS: MORPHINE SULFATE INJ 2 MG INJ IVP PRN ×2 (07:08→11:30)
[2018-12-04] MEDS: NORCO 5/325 MG TAB PO PRN ×2 (08:30→17:57)
[2018-12-04] MEDS ORDERED: PHARMACY COMMENT IV NR (08:30)
[2018-12-04] MEDS: DIFLUCAN PO SCH (08:31)
[2018-12-04 09:27] LABS: CREATININE 0.92 mg/dL (0.55-1.02); VANCOMYCIN,TROUGH 8.4 ug/mL (15-20)
[2018-12-04] MEDS: VANCOMYCIN HCL 500 MG VIAL 500 MG, VANCOMYCIN HCL 1 GM VIAL 1 G in D5W 250 ML IV 250 ML IV SCH ×2 (10:04→22:00)
[2018-12-04] MEDS: K-DUR TAB 20 MEQ PO PRN (12:16)
[2018-12-04 16:40] LABS: BILIRUBIN,URINE NEGATIVE (NEGATIVE); BLOOD/HEMOGLOBIN,URINE 2+ (NEGATIVE); GLUCOSE, URINE NEGATIVE (NEGATIVE); KETONES,URINE 1+ (NEGATIVE); LEUKOCYTE ESTERASE ,URINE 2+ (NEGATIVE); NITRITES,URINE NEGATIVE (NEGATIVE); PROTEIN,URINE 2+ (NEGATIVE); UROBILINOGEN,URINE 2+ (NORMAL)
[2018-12-04 16:47] LABS: APPEARANCE,URINE HAZY (CLEAR); COLOR,URINE YELLOW (YELLOW)
[2018-12-04 16:58] LABS: RBC,URINE 0-2 /HPF (NONE SEEN)
[2018-12-04 16:59] LABS: AMORPHOUS SEDIMENT,UR 1+ /HPF (NEGATIVE); BACTERIA,URINE TRACE /HPF (NEGATIVE); MUCUS,URINE MODERATE /HPF (NEGATIVE); SQUAMOUS EPITHELIAL CELL,UR MODERATE /HPF (NEGATIVE)
[2018-12-04] MEDS: MILK OF MAGNESIA PO PRN ×2 (22:34→22:35)
[2018-12-04] MEDS: AMBIEN PO PRN (22:34)
[2018-12-04] MEDS: COLACE CAP 100 MG PO PRN (22:34)
[2018-12-05 06:07] LABS: BASOPHILS # (AUTO) 0.1 X10^3/uL (0.0-0.1); BASOPHILS % (AUTO) 1.2 % (0.2-1.0); EOSINOPHILS # (AUTO) 0.3 x10^3/uL (0.0-0.2); EOSINOPHILS % (AUTO) 4.6 % (0.9-2.9); HEMOGLOBIN 11.3 g/dL (12.0-16.0); LYMPHOCYTES # (AUTO) 2.7 X10^3/uL (1.3-2.9); LYMPHOCYTES % (AUTO) 40.1 % (21.0-51.0); MEAN CORPUSCULAR HGB CONC 34.2 g/dL (33.0-35.0); MEAN PLATELET VOLUME 8.2 fL (7.4-11.0); MONOCYTES # (AUTO) 0.4 x10^3/uL (0.3-0.8); MONOCYTES % (AUTO) 5.4 % (0.0-13.0); NEUTROPHILS # (AUTO) 3.3 x10^3/uL (2.2-4.8); NEUTROPHILS % (AUTO) 48.7 % (42.0-75.0); PLATELET COUNT 275 X10^3/uL (150.0-450.0); RED BLOOD COUNT 4.18 X10^6/uL (3.5-5.4); RED CELL DISTRIBUTION WIDTH 13.9 % (11.6-16.5); WHITE BLOOD COUNT 6.8 X10^3/uL (3.6-10.0)
[2018-12-05 06:28] LABS: ALANINE AMINOTRANSFERASE 35 Units/L (12-78); ALBUMIN 2.9 g/dL (3.4-5.0); ALKALINE PHOSPHATASE 79 Units/L (46-116); ASPARTATE AMINO TRANSFERASE 18 Units/L (15-37); BLOOD UREA NITROGEN 10 mg/dL (7-18); CALCIUM 8.6 mg/dL (8.5-10.1); CARBON DIOXIDE 28.1 mmol/L (21-32); CHLORIDE 106 mmol/L (98-107); COR CA(FOR HYPOALB) 9.5 mg/dL (8.5-10.1); CREATININE 0.63 mg/dL (0.55-1.02); SODIUM 142 mmol/L (136-145); TOTAL PROTEIN 6.3 g/dL (6.4-8.2); eGFR NON BLACK RACES > 60 (>60)
[2018-12-05] MEDS: NS 1000 ML 1,000 ML IV SCH (08:40)
[2018-12-05] MEDS: DIFLUCAN PO SCH (08:41)
[2018-12-05] MEDS: COLACE CAP 100 MG PO PRN (08:42)
[2018-12-05] MEDS: K-DUR TAB 20 MEQ PO PRN (08:42)
[2018-12-05] MEDS: VANCOMYCIN HCL 500 MG VIAL 500 MG, VANCOMYCIN HCL 1 GM VIAL 1 G in D5W 250 ML IV 250 ML IV SCH (08:43)
[2018-12-05] MEDS ORDERED: ROBITUSSIN CF SYRUP PO PRN (12:00)
[2018-12-05 12:19] VITALS: BP 116/65
--- NOTE | 2018-12-06 10:39 | PCM.DCPLAN ---
Discharge Summary - Admission Date Date of Admission: 12/02/18 - Discharge Date Discharge Date: 12/05/18 - Admission Diagnoses (1) Facial cellulitis Status: Acute (2) HTN (hypertension) Status: Chronic - Discharge Diagnoses Discharge Diagnosis: SAME ADMISSION WITH IMPROVEMENT - Discharge Medications Discharge Medications: Home Medication List zolpidem 5 mg PO HS 12/02/18 [History] sulfamethoxazole-trimethoprim [Bactrim DS] 1 tab PO BID 5 Days #10 tab 12/05/18 [Rx] Prescriptions: sulfamethoxazole-trimethoprim [Bactrim DS] OSWALDO HOLCOMB - Hospital Course Vital Signs: Temperature 98.1 F Pulse Rate [Right Brachial] 78 Pulse Rate [Left Radial] 87 Respiratory Rate 20 Blood Pressure [Right Arm] 116/65 Blood Pressure [Left Arm] 114/66 Blood Pressure 94/59 O2 Sat by Pulse Oximetry 95 Latest Lab Results: Laboratory Last Values WBC 6.8 X10^3/uL (3.6-10.0) 12/05/18 05:27 RBC 4.18 X10^6/uL (3.5-5.4) 12/05/18 05:27 Hgb 11.3 g/dL (12.0-16.0) L 12/05/18 05:27 Hct 33.0 % (36.0-47.0) L 12/05/18 05:27 MCV 79.0 fL (80.0-100.0) L 12/05/18 05:27 MCH 27.0 pg (27.0-34.0) 12/05/18 05:27 MCHC 34.2 g/dL (33.0-35.0) 12/05/18 05:27 RDW 13.9 % (11.6-16.5) 12/05/18 05:27 Plt Count 275 X10^3/uL (150.0-450.0) 12/05/18 05:27 MPV 8.2 fL (7.4-11.0) 12/05/18 05:27 Neut % (Auto) 48.7 % (42.0-75.0) 12/05/18 05:27 Lymph % (Auto) 40.1 % (21.0-51.0) 12/05/18 05:27 [place] % (Auto) 5.4 % (0.0-13.0) 12/05/18 05:27 Eos % (Auto) 4.6 % (0.9-2.9) H 12/05/18 05:27 Baso % (Auto) 1.2 % (0.2-1.0) H 12/05/18 05:27 Neut # (Auto) 3.3 x10^3/uL (2.2-4.8) 12/05/18 05:27 Lymph # (Auto) 2.7 X10^3/uL (1.3-2.9) 12/05/18 05:27 [place] # (Auto) 0.4 x10^3/uL (0.3-0.8) 12/05/18 05:27 Eos # (Auto) 0.3 x10^3/uL (0.0-0.2) H 12/05/18 05:27 Baso # (Auto) 0.1 X10^3/uL (0.0-0.1) 12/05/18 05:27 Absolute Nucleated RBC 0.0 /100WBC 12/05/18 05:27 Sodium 142 mmol/L (136-145) 12/05/18 05:27 Corrected Sodium TNP 12/05/18 05:27 Potassium 3.6 mmol/L (3.5-5.1) 12/05/18 05:27 Chloride 106 mmol/L (98-107) 12/05/18 05:27 Carbon Dioxide 28.1 mmol/L (21-32) 12/05/18 05:27 BUN 10 mg/dL (7-18) 12/05/18 05:27 Creatinine 0.63 mg/dL (0.55-1.02) 12/05/18 05:27 Est GFR (MDRD) Af Amer > 60 (>60) 12/05/18 05:27 Est GFR (MDRD) Non-Af > 60 (>60) 12/05/18 05:27 Glucose 104 mg/dL (65-99) H 12/05/18 05:27 Calcium 8.6 mg/dL (8.5-10.1) 12/05/18 05:27 Corrected Calcium 9.5 mg/dL (8.5-10.1) 12/05/18 05:27 Magnesium 2.2 mg/dL (1.7-2.9) 12/02/18 14:57 Total Bilirubin 0.20 mg/dL (0.2-1.0) 12/05/18 05:27 AST 18 Units/L (15-37) 12/05/18 05:27 ALT 35 Units/L (12-78) 12/05/18 05:27 Alkaline Phosphatase 79 Units/L (46-116) 12/05/18 05:27 Total Protein 6.3 g/dL (6.4-8.2) L 12/05/18 05:27 Albumin 2.9 g/dL (3.4-5.0) L 12/05/18 05:27 Globulin 3.4 g/dL (2.5-4.5) 12/05/18 05:27 Albumin/Globulin Ratio 0.9 Ratio (1.1-2.1) L 12/05/18 05:27 Specimen Type Clean catch urine 12/04/18 16:12 Urine Color Yellow (YELLOW) 12/04/18 16:12 Urine Appearance Hazy (CLEAR) 12/04/18 16:12 Urine pH 6.0 (5.0 - 8.0) 12/04/18 16:12 Ur Specific [place] 1.020 (1.000-1.030) 12/04/18 16:12 Urine Protein 2+ (NEGATIVE) 12/04/18 16:12 Urine Glucose (UA) Negative (NEGATIVE) 12/04/18 16:12 Urine Ketones 1+ (NEGATIVE) 12/04/18 16:12 Urine Occult Blood 2+ (NEGATIVE) 12/04/18 16:12 Urine Nitrite Negative (NEGATIVE) 12/04/18 16:12 Urine Bilirubin Negative (NEGATIVE) 12/04/18 16:12 Urine Urobilinogen 2+ (NORMAL) 12/04/18 16:12 Ur Leukocyte Esterase 2+ (NEGATIVE) 12/04/18 16:12 Urine RBC 0-2 /HPF (NONE SEEN) 12/04/18 16:12 Urine WBC 3-5 /HPF (NONE SEEN) 12/04/18 16:12 Ur Squamous Epith Cells Moderate /HPF (NEGATIVE) 12/04/18 16:12 Amorphous Sediment 1+ /HPF (NEGATIVE) 12/04/18 16:12 Urine Bacteria Trace /HPF (NEGATIVE) 12/04/18 16:12 Urine Mucus Moderate /HPF (NEGATIVE) 12/04/18 16:12 Ur Culture Indicated? No/not indicated 12/04/18 16:12 Vancomycin Trough 8.4 ug/mL (15-20) L 12/04/18 08:55 Hospital Course: The patient is a 38yo WF who has cellulitis to left upper lip/nare region. Was seen in office and started on Clindamycin. Admitted with increase edema, erythema and pain. Denies dyspnea. No drainage present. Pt given IV Vancomycin and po diflucan 100mg during hospital stay. Admitting wbc 11.7 with improvement to 6.8. Pt condition was improved and stable with decrease in edema, erythema and pain. We allowed D/C HOME on current medications with instruction to follow up PCP in one week. Bactrim ds 1 tab po BID X 5 DAYS. SEE D/C summary for d/c medications, f/u information and referrals. - Discharge Plan Disposition: HOME, SELF-CARE Condition: Stable Prescriptions: sulfamethoxazole-trimethoprim [Bactrim DS] 1 tab PO BID 5 Days #10 tab - Follow ups/Referrals Follow ups/Referrals: OSWALDO HOLCOMB [Primary Care Provider] - 1 WEEK - Instructions Instructions: Cough, Adult, [id number] Additional Instructions: patient may return to normal activities as per
== END 2018-12-05 14:25 | disposition home or self-care (01) | DRG 603 ==
LOC: MED/SURG 13:21
PROVIDERS: ADMIT Internal Medicine; ATTEND Internal Medicine
DX: K13.0 Diseases of lips; I10 Essential (primary) hypertension; B95.62 Methicillin resistant Staphylococcus aureus infection as the cause of diseases classified elsewhere; L03.211 Cellulitis of face
CPT/HCPCS: 36415; 70486; 80053; 80202; 81001; 82565; 83735; 84132; 85025; 87040; 87070; 87077; 87186; 87205; A4222; J2270; J3370; J3490; J7030; J7060